=== PATIENT | male | born 1985 | race Hispanic/Latino ===

== ENCOUNTER 2016-10-15 15:59 | Emergency (ER) | payer SELFPAY ==
[2016-10-15 16:32] VITALS: BP 153/98
[2016-10-15 16:50] LABS: Urine Drugs of Abuse Note Disclamer
[2016-10-15] MEDS ORDERED: ATIVAN PO ONE (16:50)
[2016-10-15 17:00] LABS: Bilirubin,Urine NEG (Negative); Blood,Urine NEG (Negative); Ketones,Urine TR mg/dL (Negative); Leukocyte Esterase,Urine TR (Negative); Mucus,Urine FEW /HPF; Nitrite,Urine NEG (Negative)
[2016-10-15 17:07] LABS: Basophils % (Auto) 0.5 % (0.0-1.8); Eosinophils % (Auto) 0.3 % (0.0-4.3); Hematocrit 46.6 % (35.5-45.6); Hemoglobin 15.9 gm/dl (11.8-15.2); Mean Corpuscular HGB Conc 34 % (32-34); Mean Corpuscular Hemoglobin 33 pg (28-32); Mean Corpuscular Volume 96 fl (84-94); Platelet Count 201 K/mm3 (140-440); Red Blood Count 4.85 M/mm3 (3.65-5.03); Red Cell Distribution Width 14.3 % (13.2-15.2); White Blood Count 9.1 K/mm3 (4.5-11.0)
[2016-10-15 17:15] LABS: Anion Gap 21 mmol/L; BUN/Creatinine Ratio 14.54; Blood Urea Nitrogen 16 mg/dL (9-20); Calcium 9.2 mg/dL (8.4-10.2); Carbon Dioxide 23 mmol/L (22-30); Chloride 101.9 mmol/L (98-107); Glucose 178 mg/dL (75-100); Potassium 3.9 mmol/L (3.6-5.0); Sodium 142 mmol/L (137-145)
--- NOTE | 2016-10-15 18:35 | Emergency Department Report ---
ED Psych HPI - General Chief Complaint: Psych Stated Complaint: MH/PTSD Time Seen by Provider: 10/15/16 16:41 Source: patient, RN notes reviewed Mode of arrival: Ambulatory Limitations: No Limitations - History of Present Illness Initial Comments: 31-year-old male presents to the emergency department for mental health evaluation. Patient reports a history of PTSD. He states earlier today he began feeling extremely jittery and felt his heart beating really fast. He states his hands seized up. He states when he got to the emergency room, he became angry because he thought people are laughing at him. He states this internal and rash released his hands. He denies suicidal or homicidal thoughts. He also denies visual or auditory hallucinations. There are no other complaints. -: Gradual, This morning Associated Psychiatric Symptoms: racing thoughts History of same: Yes Quality: constant Improves With: none Worsens With: none Associated Symptoms: denies other symptoms Treatments Prior to Arrival: none - Related Data Home Medications Medication Instructions Recorded Confirmed Last Taken Citalopram Hydrobromide [celeXA] 10 mg PO QDAY 10/15/16 10/15/16 10/15/16 09:00 Allergies Allergy/AdvReac Type Severity Reaction Status Date / Time No Known Allergies Allergy Verified 10/15/16 16:22 ED Review of Systems ROS: Stated complaint: MH/PTSD Other details as noted in HPI Comment: All other systems reviewed and negative Psychiatric: anxiety ED Past Medical Hx - Past Medical History Previous Medical History?: Yes Hx Psychiatric Treatment: Yes (PTSD / DEPRESSION) Additional medical history: cellulitis. bipolar-(PT DENIES) - Surgical History Past Surgical History?: No - Family History Family history: no significant - Social History Smoking Status: Current Every Day Smoker Substance Use Type: Alcohol, Marijuana - Medications Home Medications: Home Medications Medication Instructions Recorded Confirmed Last Taken Type Citalopram Hydrobromide [celeXA] 10 mg PO QDAY 10/15/16 10/15/16 10/15/16 09:00 History ED Physical Exam - General Limitations: No Limitations General appearance: alert, anxious - Head Head exam: Present: atraumatic, normocephalic - Eye Eye exam: Present: normal appearance, PERRL, EOMI - ENT ENT exam: Present: normal exam, normal orophraynx, mucous membranes moist - Neck Neck exam: Present: normal inspection, full ROM. Absent: tenderness - Respiratory Respiratory exam: Present: normal lung sounds bilaterally. Absent: respiratory distress - Cardiovascular Cardiovascular Exam: Present: normal rhythm, tachycardia, normal heart sounds - GI/Abdominal GI/Abdominal exam: Present: soft, normal bowel sounds. Absent: distended, tenderness - Extremities Exam Extremities exam: Present: normal inspection, full ROM. Absent: tenderness - Back Exam Back exam: Present: normal inspection, full ROM. Absent: tenderness - Neurological Exam Neurological exam: Present: alert, oriented X3. Absent: motor sensory deficit - Skin Skin exam: Present: warm, dry, intact ED Course Vital Signs 10/15/16 16:23 Temperature 98.5 F Pulse Rate 121 H Respiratory 19 Rate Blood Pressure 153/98 O2 Sat by Pulse 99 Oximetry ED Medical Decision Making - Lab Data Result diagrams: 10/15/16 16:48 10/15/16 16:48 - EKG Data -: EKG Interpreted by Ne EKG shows normal: sinus rhythm, axis, intervals, QRS complexes, ST-T waves Rate: tachycardia - EKG Data When compared to previous EKG there are: previous EKG unavailable Interpretation: normal EKG - Medical Decision Making Lab results reviewed and discussed with the patient. Patient has been medically cleared and is currently awaiting mental health evaluation. Patient has been evaluated by mental health and cleared for discharge to follow up as an outpatient. Patient will be discharged home at this time. - Differential Diagnosis anxiety, drug abuse, PTSD Critical care attestation.: If time is entered above; I have spent that time in minutes in the direct care of this critically ill patient, excluding procedure time. ED Disposition Clinical Impression: PTSD (post-traumatic stress disorder), Cocaine abuse Disposition: DISCHARGED TO HOME OR SELFCARE Is pt being admited?: No Condition: Stable Instructions: Post Traumatic Stress Disorder (ED), Cocaine Abuse (ED) Referrals: PRIMARY CARE, [Primary Care Provider] - 3-5 Days Time of Disposition: 19:56
== END 2016-10-15 21:04 | disposition home or self-care (01) ==
LOC: ED 15:59
DX: F43.10 Post-traumatic stress disorder, unspecified (principal); F14.10 Cocaine abuse, uncomplicated; F32.9 Major depressive disorder, single episode, unspecified; F17.200 Nicotine dependence, unspecified, uncomplicated; F12.10 Cannabis abuse, uncomplicated
CPT/HCPCS: 36415; 80048; 80307; 81001; 85025; 93005; 93010; 99284; G0480; 80320

== ENCOUNTER 2017-11-24 11:52 | Emergency (ER) | payer SELFPAY ==
[2017-11-24 11:57] VITALS: BP 139/97
[2017-11-24] MEDS ORDERED: TORADOL IM ONE (12:00)
[2017-11-24] MEDS ORDERED: NORCO 7.5/325 PO ONE (12:02)
[2017-11-24] MEDS ORDERED: ZOFRAN ODT ONE (12:08)
[2017-11-24] MEDS ORDERED: ZOFRAN ODT PO ONE (12:13)
[2017-11-24] MEDS ORDERED: XYLOCAINE 2% INFILTRATI ONE ×2 (12:16)
--- NOTE | 2017-11-24 12:29 | XRay Report ---
LEFT SHOULDER, ONE VIEW History: Portable. Findings: Anterior and inferior dislocation of the left glenohumeral joint is identified. No obvious fracture. Impression: Dislocation of the left shoulder.
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
== END 2017-11-24 13:19 | disposition home or self-care (01) ==
LOC: ED 11:52
DX: S43.005A Unspecified dislocation of left shoulder joint, initial encounter (principal); F43.10 Post-traumatic stress disorder, unspecified; F31.9 Bipolar disorder, unspecified; F17.200 Nicotine dependence, unspecified, uncomplicated; F12.10 Cannabis abuse, uncomplicated; Z79.899 Other long term (current) drug therapy; Y08.89XA Assault by other specified means, initial encounter; Y93.89 Activity, other specified; Y99.8 Other external cause status; Y92.89 Other specified places as the place of occurrence of the external cause
CPT/HCPCS: 23650; 73020; 96372; 99283; J1885; Q0162

== ENCOUNTER 2021-05-11 12:41 | Emergency (ER) | payer SELFPAY ==
[2021-05-11] MEDS ORDERED: cephALEXin 500 MG CAP PO ONE (13:08)
[2021-05-11] MEDS ORDERED: TETANUS,DIPH,PERTUSS(ACELL) VACCINE 0.5 ML SYRINGE IM ONE (13:08)
--- NOTE | 2021-05-11 13:15 | Emergency Department Report ---
- General Chief Complaint: Extremity Problem,Nontraumatic Stated Complaint: INJURY TO LEFT HAND Time Seen by Provider: 05/11/21 13:01 Source: patient Mode of arrival: Ambulatory Limitations: No Limitations - History of Present Illness Initial Comments: Chief complaint: hand arm swelling HPI: This is a 36-year-old male with history of PTSD, bipolar disorder who presents with hand and arm infection. He has a previous history of staph infection. 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 He has had multiple small cuts. He has achy swelling of his hand with red streaks of his arm. -: Gradual, week(s) (1 week course of the last several days) Location: other (Left arm) Extremity Location: Left: Arm, Elbow, Forearm, Wrist, Hand Place: home, school Patient Tetanus UTD: No Context: other (Several small cuts hand forearm) Associated Symptoms: pain - Related Data Home Medications Medication Instructions Recorded Confirmed Last Taken Citalopram Hydrobromide [celeXA] 10 mg PO QDAY 10/15/16 10/15/16 10/15/16 09:00 Previous Rx's Medication Instructions Recorded Last Taken Type HYDROcodone/APAP 5-325 [[place] 1 each PO Q6HR PRN #15 tablet 11/24/17 Unknown Rx 5/325] Ibuprofen [Motrin] 800 mg PO Q8HR PRN #20 tablet 11/24/17 Unknown Rx methOCARBAMOL [Robaxin TAB] 500 mg PO Q6H PRN #15 tablet 11/24/17 Unknown Rx Sulfamethoxazole/Trimethoprim 1 each PO BID 10 Days #20 tablet 05/11/21 Unknown Rx [Bactrim DS TAB] cephALEXin [Keflex] 500 mg PO QID 10 Days #40 capsule 05/11/21 Unknown Rx Allergies Allergy/AdvReac Type Severity Reaction Status Date / Time No Known Allergies Allergy Verified 11/24/17 11:55 ED Review of Systems ROS: Stated complaint: INJURY TO LEFT HAND Other details as noted in HPI Comment: All other systems reviewed and negative Constitutional: denies: chills, fever, malaise Respiratory: denies: cough, shortness of breath Cardiovascular: denies: chest pain Skin: rash, lesions ED Past Medical Hx - Past Medical History Previous Medical History?: Yes Hx Psychiatric Treatment: Yes (PTSD / DEPRESSION) Additional medical history: cellulitis. bipolar-(PT DENIES) - Social History Smoking Status: Current Every Day Smoker Substance Use Type: Alcohol, Marijuana - Medications Home Medications: Home Medications Medication Instructions Recorded Confirmed Last Taken Type Citalopram Hydrobromide [celeXA] 10 mg PO QDAY 10/15/16 10/15/16 10/15/16 09:00 History HYDROcodone/APAP 5-325 [[place] 1 each PO Q6HR PRN #15 tablet 11/24/17 Unknown Rx 5/325] Ibuprofen [Motrin] 800 mg PO Q8HR PRN #20 tablet 11/24/17 Unknown Rx methOCARBAMOL [Robaxin TAB] 500 mg PO Q6H PRN #15 tablet 11/24/17 Unknown Rx Sulfamethoxazole/Trimethoprim 1 each PO BID 10 Days #20 tablet 05/11/21 Unknown Rx [Bactrim DS TAB] cephALEXin [Keflex] 500 mg PO QID 10 Days #40 capsule 05/11/21 Unknown Rx ED Physical Exam - General Limitations: No Limitations General appearance: alert, in no apparent distress - Head Head exam: Present: atraumatic, normocephalic - Eye Eye exam: Present: normal appearance - Neck Neck exam: Present: normal inspection, full ROM - Respiratory Respiratory exam: Present: normal lung sounds bilaterally. Absent: respiratory distress, wheezes, rales, rhonchi - Cardiovascular Cardiovascular Exam: Present: regular rate, normal rhythm, normal heart sounds - GI/Abdominal GI/Abdominal exam: Present: soft. Absent: distended, tenderness, rebound - Neurological Exam Neurological exam: Present: alert, oriented X3 - Psychiatric Psychiatric exam: Present: normal affect, normal mood - Skin Skin exam: Present: other (Left hand swelling involving the thumb finger middle finger dorsal portion of hand streaky redness forearm and upper arm) - Other Other exam information: No pain with passive flexion and extension of extremities Multiple superficial cuts of the hand. Large scar left forearm ED Course Vital Signs 05/11/21 05/11/21 13:20 13:30 Temperature 98 F Pulse Rate 87 Respiratory 18 16 Rate Blood Pressure 124/67 113/64 [Left] O2 Sat by Pulse 100 99 Oximetry ED Medical Decision Making - Medical Decision Making Left hand forearm cellulitis: No clinical evidence of tenosynovitis of the fingers. Prescribed Bactrim Keflex first dose is provided in emergency department. Tdap booster also provided. Patient denies IV drug abuse. Patient understands to return to the emergency department if symptoms worsen. Critical care attestation.: If time is entered above; I have spent that time in minutes in the direct care of this critically ill patient, excluding procedure time. ED Disposition Clinical Impression: Cellulitis of left hand, Left arm cellulitis Disposition: HOME / SELF CARE / HOMELESS Is pt being admited?: No Does the pt Need Aspirin: No Condition: Stable Instructions: Cellulitis, Adult, [id number] Prescriptions: Sulfamethoxazole/Trimethoprim [Bactrim DS TAB] 1 each PO BID 10 Days #20 tablet cephALEXin [Keflex] 500 mg PO QID 10 Days #40 capsule Referrals: SKIP DÍAZ MD [Staff Physician] - 3-5 Days
[2021-05-11] MEDS: SULFAMETHOXAZOLE/TRIMETHOPRIM 800/160MG DS TAB PO ONE (13:21)
[2021-05-11 13:31] VITALS: BP 113/64
== END 2021-05-11 14:21 | disposition home or self-care (01) ==
LOC: ED 12:41
DX: L03.114 Cellulitis of left upper limb (principal); F17.290 Nicotine dependence, other tobacco product, uncomplicated; F32.9 Major depressive disorder, single episode, unspecified; Z79.899 Other long term (current) drug therapy
CPT/HCPCS: 90471; 90715; 99282